=== PATIENT | male | born 1975 | race Two or more races ===

== ENCOUNTER 2017-05-15 19:24 | Emergency (ER) | payer OTHER ==
[~2017-05-15] VITALS: Ht 177.8 cm; Wt 88.5 kg
[2017-05-15 19:34] VITALS: BP 139/80
[2017-05-16] MEDS ORDERED: IBUPROFEN 800 MG TAB PO ONE ×2 (00:16→00:30)
== END 2017-05-16 00:29 | disposition home or self-care (01) ==
LOC: ER 19:26
DX: S66.911A Strain of unspecified muscle, fascia and tendon at wrist and hand level, right hand, initial encounter (principal); M85.40 Solitary bone cyst, unspecified site; X58.XXXA Exposure to other specified factors, initial encounter; Y93.89 Activity, other specified; Y92.89 Other specified places as the place of occurrence of the external cause; Y99.8 Other external cause status
CPT/HCPCS: 29105; 29125; 73110